=== PATIENT | female | born 1980 | race Caucasian/White ===

== ENCOUNTER 2018-02-08 00:35 | Emergency (ER) | payer SELFPAY ==
[~2018-02-08] VITALS: Ht 154.9 cm; Wt 64.0 kg
[2018-02-08] MEDS ORDERED: ONDANSETRON HCL 4MG/2ML VIAL IV STA (03:51)
[2018-02-08] MEDS ORDERED: SODIUM CHLORIDE 0.9% 1,000 ML IV ONE (03:51)
[2018-02-08] MEDS ORDERED: FAMOTIDINE 20MG/2ML VIAL IV STA (03:51)
[2018-02-08] MEDS ORDERED: MORPHINE SULFATE 4 MG/ML CPJ (NOT FOR IM USE) IV STA (03:51)
[2018-02-08 04:14] LABS: CLARITY URINE CLEAR (CLEAR); COLOR URINE YELLOW (YELLOW); KETONES URINE NEGATIVE (NEGATIVE); LEUKOCYTE ESTERASE URINE NEGATIVE (NEGATIVE); NITRITE URINE NEGATIVE (NEGATIVE); OCCULT BLOOD URINE NEGATIVE (NEGATIVE); PH URINE >=9.0 (4.5-8.0); PROTEIN URINE NEGATIVE (NEGATIVE); SPECIFIC GRAVITY URINE 1.013 (1.005-1.030); UROBILINOGEN URINE 0.2 E.U./dL (0.2-1.0)
[2018-02-08 04:35] LABS: BASOPHILS % 0.2 % (0.0-2.0); EOSINOPHILS % 0.5 % (0.0-5.0); HEMATOCRIT. 35.2 % (36.0-48.0); HEMOGLOBIN. 12.1 g/dL (12.0-16.0); LYMPHOCYTES % 27.9 % (20.0-50.0); MEAN CORPUSCULAR HEMOGLOBIN 30.7 pg (28.0-32.0); MEAN CORPUSCULAR VOLUME 89.2 fL (81.0-99.0); MEAN PLATELET VOLUME 9.8 fl (7.4-10.4); MONOCYTES % 7.8 % (2.0-8.0); NEUTROPHILS % 63.6 % (40.0-76.0); PLATELET 187 x1000/uL (130-400); RED BLOOD CELL COUNT 3.94 mill/uL (4.2-5.4); RED CELL DISTRIBUTION WIDTH 13.5 % (11.6-14.6)
[2018-02-08 04:37] LABS: CHLORIDE 108 mEq/L (98-107)
[2018-02-08 06:20] VITALS: BP 129/84
== END 2018-02-08 06:24 | disposition home or self-care (01) ==
LOC: ER 00:35
DX: K80.20 Calculus of gallbladder without cholecystitis without obstruction (principal); R10.84 Generalized abdominal pain; Z90.49 Acquired absence of other specified parts of digestive tract
CPT/HCPCS: 36415; 76705; 80053; 81003; 81025; 83690; 85025; 96374; 96375; 99285; J2270; J2405; J3490; J7030; Z7610

== ENCOUNTER 2019-06-11 23:44 | Emergency (ER) | payer MEDICAID ==
[~2019-06-11] VITALS: Ht 167.6 cm; Wt 68.0 kg
[2019-06-12] MEDS ORDERED: LIDOCAINE HCL/EPINEPHRINE 1%-EPI 1:100,000 20 ML VIAL INFIL ONE (00:30)
[2019-06-12] MEDS ORDERED: ACETAMINOPHEN 325MG TABLET PO ONE (00:30)
[2019-06-12 06:02] VITALS: BP 117/73
== END 2019-06-12 06:03 | disposition home or self-care (01) ==
LOC: ER 23:44
DX: S02.92XA Unspecified fracture of facial bones, initial encounter for closed fracture (principal); R51 Headache; Y08.89XA Assault by other specified means, initial encounter; Y93.89 Activity, other specified; Y92.89 Other specified places as the place of occurrence of the external cause; Y99.8 Other external cause status
CPT/HCPCS: 70486; 81025; 99284

== ENCOUNTER 2020-10-26 01:18 | Emergency (ER) | payer MEDICAID ==
[~2020-10-26] VITALS: Ht 154.9 cm; Wt 64.0 kg
[2020-10-26] MEDS ORDERED: KETOROLAC 30MG/ML VIAL IV ONE (02:15)
[2020-10-26 03:09] LABS: BASOPHILS % 0.3 % (0.0-2.0); EOSINOPHILS % 1.1 % (0.0-5.0); HEMATOCRIT. 35.1 % (36.0-48.0); HEMOGLOBIN. 11.9 g/dL (12.0-16.0); LYMPHOCYTES % 29.1 % (20.0-50.0); MEAN CORPUSCULAR HEMOGLOBIN 30.8 pg (28.0-32.0); MEAN PLATELET VOLUME 9.8 fl (7.4-10.4); MONOCYTES % 6.6 % (2.0-8.0); NEUTROPHILS % 62.9 % (40.0-76.0); PLATELET 204 x1000/uL (130-400); RED BLOOD CELL COUNT 3.85 mill/uL (4.2-5.4); RED CELL DISTRIBUTION WIDTH 13.5 % (11.6-14.6)
[2020-10-26 03:25] LABS: CHLORIDE 107 mEq/L (98-107)
[2020-10-26 03:50] LABS: B-HCG QUANTITATIVE 1070 mIU/mL (<3)
[2020-10-26 05:58] VITALS: BP 97/55
== END 2020-10-26 05:58 | disposition home or self-care (01) ==
LOC: ER 01:22
DX: O03.9 Complete or unspecified spontaneous abortion without complication (principal); Z3A.10 10 weeks gestation of pregnancy; Z90.49 Acquired absence of other specified parts of digestive tract
CPT/HCPCS: 36415; 76801; 76817; 80053; 84702; 85025; 86850; 86900; 86901; 88304; 93005; 96374; 99285; J1885

== ENCOUNTER 2023-03-24 05:14 | Emergency (ER) | payer MEDICAID ==
[~2023-03-24] VITALS: Ht 154.9 cm; Wt 69.5 kg
[2023-03-24 05:26] VITALS: O2SAT 100
[2023-03-24 05:42] LABS: CLARITY URINE CLEAR (CLEAR); COLOR URINE YELLOW (YELLOW); KETONES URINE NEGATIVE (NEGATIVE); LEUKOCYTE ESTERASE URINE TRACE (NEGATIVE); NITRITE URINE NEGATIVE (NEGATIVE); OCCULT BLOOD URINE NEGATIVE (NEGATIVE); PH URINE 6.5 (4.5-8.0); PROTEIN URINE NEGATIVE (NEGATIVE); SPECIFIC GRAVITY URINE 1.011 (1.005-1.030); UROBILINOGEN URINE 0.2 E.U./dL (0.2-1.0)
[2023-03-24] MEDS ORDERED: DEXAMETHASONE 0.5MG/5ML ORAL SYR PO ONE (06:15)
[2023-03-24] MEDS ORDERED: DEXAMETHASONE 2MG TABLET PO NR (06:15)
[2023-03-24] MEDS ORDERED: AMOX-494 MT (06:45)
[2023-03-24 07:01] VITALS: BP 119/80; PULSE 85; RESP 18; TEMP 99
== END 2023-03-24 07:02 | disposition home or self-care (01) ==
LOC: ER 05:14
DX: J03.90 Acute tonsillitis, unspecified (principal); Z90.49 Acquired absence of other specified parts of digestive tract
CPT/HCPCS: 99283; 81003; 81025; J8540

== ENCOUNTER 2023-12-31 01:19 | Emergency (ER) | payer MEDICAID ==
[~2023-12-31] VITALS: Ht 154.9 cm; Wt 64.0 kg
[~2023-12-31 01:19] MED LIST: AMOX-494 MT
[2023-12-31 01:30] VITALS: O2SAT 100
[2023-12-31 03:28] LABS: CLARITY URINE CLEAR (CLEAR); COLOR URINE YELLOW (YELLOW); GLUCOSE URINE NEGATIVE (NEGATIVE); KETONES URINE NEGATIVE (NEGATIVE); LEUKOCYTE ESTERASE URINE TRACE (NEGATIVE); NITRITE URINE NEGATIVE (NEGATIVE); OCCULT BLOOD URINE NEGATIVE (NEGATIVE); PH URINE 6.5 (4.5-8.0); PROTEIN URINE NEGATIVE (NEGATIVE); SPECIFIC GRAVITY URINE 1.015 (1.005-1.030); UROBILINOGEN URINE 0.2 E.U./dL (0.2-1.0)
[2023-12-31 04:01] LABS: BACTERIA URINE NONE SEEN; RBC URINE NONE SEEN /hpf (0-2); SQUAMOUS EPITHELIAL CELL URINE NONE SEEN /lpf (RARE/1+); WBC URINE NONE SEEN /hpf (0-2)
[2023-12-31] MEDS: ONDANSETRON 4MG ODT PO PRN (05:35)
[2023-12-31] MEDS ORDERED: CEPH250C2 MT (06:09)
[2023-12-31 06:20] VITALS: BP 112/50; PULSE 64; RESP 20; TEMP 98.6
== END 2023-12-31 06:20 | disposition home or self-care (01) ==
LOC: ER 01:19
DX: R10.30 Lower abdominal pain, unspecified (principal); R30.0 Dysuria; R11.0 Nausea; Z98.51 Tubal ligation status; Z90.49 Acquired absence of other specified parts of digestive tract
CPT/HCPCS: 99283; 81003; 81025; 87086; Q0162